=== PATIENT | female | born 1955 | race Caucasian/White ===

== ENCOUNTER → 2019-04-25 | Outpatient (CLI) | payer BC, OTHER | LOC: NUC 09:51 | DX: Z12.31 Encounter for screening mammogram for malignant neoplasm of breast (principal); E28.39 Other primary ovarian failure; Z78.0 Asymptomatic menopausal state; Z88.8 Allergy status to other drugs, medicaments and biological substances ==

== ENCOUNTER → 2019-05-08 | Outpatient (CLI) | payer BC, OTHER | LOC: RAD 00:21 | DX: R92.2 Inconclusive mammogram (principal) ==

== ENCOUNTER → 2020-06-24 | Outpatient (CLI) | payer BC, OTHER | LOC: BC 11:01 | PROVIDERS: ATTEND Family Medicine | DX: Z12.31 Encounter for screening mammogram for malignant neoplasm of breast (principal) ==

== ENCOUNTER → 2020-10-07 | Outpatient (CLI) | payer BC, OTHER | LOC: CAT 09:23 | PROVIDERS: ATTEND Family Medicine | DX: Z12.2 Encounter for screening for malignant neoplasm of respiratory organs (principal); J84.10 Pulmonary fibrosis, unspecified; R91.8 Other nonspecific abnormal finding of lung field; Z87.891 Personal history of nicotine dependence ==

== ENCOUNTER 2021-01-04 19:29 | Emergency (ER) | payer BC, OTHER ==
[~2021-01-04] VITALS: Ht 165.1 cm; Wt 77.1 kg
[2021-01-04] MEDS ORDERED: SERTRALINE HCL100 MG PO (19:53)
[2021-01-04] MEDS ORDERED: ZOCOR 20 MG TAB20 M1 PO (19:53)
[2021-01-04] MEDS ORDERED: SPIRONOLACTONE25 MG PO (19:54)
[2021-01-04] MEDS ORDERED: OMEPRAZOLE 20 M20 M1 PO (19:54)
[2021-01-04 20:06] LABS: URINE BILIRUBIN NEGATIVE (Negative); URINE BLOOD NEGATIVE (Negative); URINE CLARITY CLEAR; URINE COLOR YELLOW; URINE GLUCOSE-RANDOM* NEGATIVE (Negative); URINE KETONES TRACE (Negative); URINE NITRITE-REFLEX NEGATIVE (Negative); URINE PROTEIN (DIPSTICK) NEGATIVE (Negative); URINE UROBILINOGEN 0.2 E.U./dl (0.2-1.0)
[2021-01-04 20:07] LABS: URINE LEUKOCYTES-REFLEX 1+ (Negative)
[2021-01-04 20:14] LABS: BACTERIA-REFLEX 1-9 Few /HPF (None Seen); CASTS None Seen /LPF (None Seen); CRYSTALS None Seen /LPF (None Seen); SQUAMOUS 0-3 Few /LPF (0-3); URINE RBC None Seen /HPF (0-2); URINE WBC-REFLEX 6-15 Few /HPF (0-5)
[2021-01-04 20:26] LABS: ABSOLUTE NEUTROPHILS 7.1 thou/uL (1.4-8.2); EOSINOPHILS 4.6 % (0.0-3.0); HEMATOCRIT 40.7 % (37.0-47.0); HEMOGLOBIN 14.3 gm/dL (12.0-15.0); LYMPHOCYTES 20.2 % (24.0-44.0); MCHC 35.2 g/dL (28.0-37.0); MONOCYTES 6.3 % (1.0-8.0); PLATELET COUNT 304 thou/uL (150-400); POLYS 67.9 % (36.0-66.0); RBC 4.47 mil/uL (4.20-5.00); RDW 13.5 % (10.5-14.5); WBC 10.5 thou/uL (4.0-11.0)
[2021-01-04 20:32] LABS: ANION GAP 7 mmol/L (7-16); BUN 11 mg/dL (7-18); CALCIUM 9.8 mg/dL (8.5-10.1); CHLORIDE 102 mmol/L (98-107); CO2 30 mmol/L (21-32); CREATININE 0.9 mg/dL (0.6-1.0); GLUCOSE 155 mg/dL (74-106); POTASSIUM 3.5 mmol/L (3.5-5.1); SODIUM 139 mmol/L (136-145)
[2021-01-04 20:41] LABS: SGOT 16 U/L (15-37); SGPT 28 U/L (14-59); TOTAL BILIRUBIN 0.5 mg/dL (0.2-1.0); TOTAL PROTEIN 7.5 g/dL (6.4-8.2); TROPONIN-I <0.06 ng/mL (<0.06)
[2021-01-04] MEDS ORDERED: SPIRONOLACTONE25 M1 PO (21:17)
[2021-01-04 21:27] VITALS: BP 174/81
--- NOTE | 2021-01-05 07:11 | EKG ---
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 01/05/21710 48 2049 Jasper Haider MD, FACC /EPI
== END 2021-01-04 21:29 | disposition home or self-care (01) ==
LOC: ER 19:29
PROVIDERS: Emergency Medicine
DX: I10 Essential (primary) hypertension (principal); G43.909 Migraine, unspecified, not intractable, without status migrainosus; F17.210 Nicotine dependence, cigarettes, uncomplicated; Z90.710 Acquired absence of both cervix and uterus; Z79.899 Other long term (current) drug therapy; Z88.5 Allergy status to narcotic agent; Z88.8 Allergy status to other drugs, medicaments and biological substances

== ENCOUNTER → 2021-04-27 | Outpatient (CLI) | payer BC, OTHER ==
[~2021-04-27] MED LIST: OMEPRAZOLE 20 M20 M1 PO; SERTRALINE HCL100 MG PO; SPIRONOLACTONE25 M1 PO; SPIRONOLACTONE25 MG PO; ZOCOR 20 MG TAB20 M1 PO
== END ==
LOC: SJCVCIMAG 09:12
PROVIDERS: ATTEND Internal Medicine
DX: I07.1 Rheumatic tricuspid insufficiency (principal); I27.20 Pulmonary hypertension, unspecified; R01.1 Cardiac murmur, unspecified; R00.1 Bradycardia, unspecified